=== PATIENT | female | born 1955 | race American Indian/Alaskan Native ===

== ENCOUNTER 2018-11-18 09:27 | Outpatient (CLI) | payer BC, OTHER ==
--- NOTE | 2018-11-18 14:04 | Mammography Report ---
BILATERAL DIGITAL SCREENING MAMMOGRAM with CAD : 11/18/18 09:27:00 CLINICAL: Routine screening.History of breast cancer in her mother at the age of 60. COMPARISON:02/13/11 FINDINGS: The breasts are heterogeneously dense, which may obscure small masses.Numerous bilateral axillary and upper outer intraparenchymal lymph nodes with benign morphology. Most of the lymph nodes were present on the previous mammogram. Some have enlarged but none have suspicious features. No mass, architectural distortion or suspicious calcifications. IMPRESSION: No mammographic evidence of malignancy. BI-RADS CATEGORY: 2 -- Benign RECOMMENDATION: Routine mammographic screening in one year. COMMENT: Patient follow-up letters are generated by our [employer] application.
== END 2018-11-18 09:28 | disposition home or self-care (01) ==
LOC: SPVWC 09:27
PROVIDERS: ATTEND Family Medicine
DX: Z12.31 Encounter for screening mammogram for malignant neoplasm of breast (principal)
CPT/HCPCS: 77067